=== PATIENT | male | born 1950 | race Caucasian/White ===

== ENCOUNTER 2025-06-08 15:17 | Inpatient (IN) | payer OTHER, MEDICARE ==
[~2025-06-08] VITALS: Ht 182.9 cm; Wt 102.0 kg
[~2025-06-08 15:17] MED LIST: AMLO1TAB22 PO; APIX5TAB PO; CARV12.544 PO; FURO40TA4 PO; HYDR12.55 PO; LOSA-535 PO; POTA-228 PO; PRED1SUS31 RIGHTEYE
--- NOTE | 2025-06-08 15:28 | ECG ---
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
--- NOTE | 2025-06-08 15:45 | ED.PDOC ---
History of Present Illness HPI Comments 75-year-old male BIBSelena with prior medical history of hypertension, CHF complain of possible syncope/weakness. EMS report on getting a call by the family due from the patient possibly having a syncopal episode, but when EMS arrived on scene the patient was sitting on his recliner, A/Ox4, of 48/26. In route the patient was given 800 mg of via IV to the right forearm which brought the blood pressure up to 95/54 in the ER. Patient and family are poor historians. Denies chills, fever, N/V/D, SOB, CP. No other associated symptoms, modifiers, recent injuries or sick contacts present at this time. Chief Complaint: General Weakness Time Seen by MD: 15:45 Reviewed Notes: Nurses Notes, Medications, Allergies Information Source: Patient Mode of Arrival: EMS Severity: Moderate Timing: Minutes Duration: Since onset, Minutes Prehospital treatment: None Past Medical History PAST MEDICAL HISTORY: CHF, HTN Surgical History: Denies all surgeries Family History Family History: Reviewed,noncontributory to illness, Unknown Social History Smoker: Non-Smoker Alcohol: Denies ETOH Use Drugs: Denies Drug Use Lives In: Home Constitutional: reports: weakness; denies: chills, diaphoresis, fatigue, fever, malaise, sweats, others EENTM: denies: blurred vision, double vision, ear bleeding, ear discharge, ear drainage, ear pain, ear ringing, eye pain, eye redness, hearing loss, mouth pain, mouth swelling, nasal discharge, nose bleeding, nose congestion, nose pain, photophobia, tearing, throat pain, throat swelling, voice changes, others Respiratory: denies: cough, hemoptysis, orthopnea, SOB at rest, shortness of breath, SOB with excertion, stridor, wheezing, others Cardiovascular: reports: syncope; denies: chest pain, dizzy spells, diaphoresis, Dyspnea on exertion, edema, irregular heart beat, left arm pain, lightheadedness, palpitations, PND, others Gastrointestinal: denies: abdomen distended, abdominal pain, blood streaked bowels, constipated, diarrhea, dysphagia, difficulty swallowing, hematemesis, melena, nausea, poor appetite, poor fluid intake, rectal bleeding, rectal pain, vomiting, others Genitourinary: denies: burning, dysuria, flank pain, frequency, hematuria, incontinence, penile discharge, penile sore, pain, testicle pain, testicle swelling, urgency, others Neurological: denies: dizziness, fainting, headache, left sided numbness, left sided weakness, numbness, paresthesia, pre-existing deficit, right sided numbness, right sided weakness, seizure, speech problems, tingling, tremors, weakness, others Musculoskeletal: denies: back pain, gout, joint pain, joint swelling, muscle pain, muscle stiffness, neck pain, others Integumetry: denies: bruises, change in color, change in hair/nails, dryness, laceration, lesions, lumps, rash, wounds, others Allergic/Immunocompromised: denies: Difficulty Healing, Frequent Infections, Hives, Itching, others Hematologic/Lymphatic: denies: anemia, blood clots, easy bleeding, easy bruising, swollen glands, others Endocrine: denies: excessive hunger, excessive sweating, excessive thirst, excessive urination, flushing, intolerance to cold, intolerance to heat, unexplained weight gain, unexplained weight loss, others Psychiatric: denies: anxiety, bipolar disorder, depression, hopeless, panic disorder, schizophrenia, sleepless, suicidal, others All Other Systems: Reviewed and Negative Physical Exam General Appearance: Moderate Distress, Normal HEENT: Normal ENT Inspection, Pharynx Normal, TMs Normal Neck: Full Range of Motion, Non-Tender, Normal, Normal Inspection Respiratory: Chest Non-Tender, Lungs Clear, No Accessory Muscle Use, No Respiratory Distress, Normal Breath Sounds Cardiovascular: No Edema, No JVD, No Murmur, No Gallop, Normal Peripheral Pulses, Regular Rate/Rhythm Breast Exam: Deferred Gastrointestinal: No Organomegaly, Non Tender, No Pulsatile Mass, Normal Bowel Sounds, Soft Genitalia: Deferred Pelvic: Deferred Rectal: Deferred Extremities: No calf tenderness, Normal capillary refill, Normal range of motion, Non-tender, No pedal edema Musculoskeletal : Apperance: Normal Neurologic: Disoriented, No Motor Deficits, No Sensory Deficits Cerebellar Function: NOT DONE Reflexes: NOT DONE Skin: Dry, Normal Color, Warm Peripheral Pulses: 3+ Radial (R), 3+ Radial (L) Lymphatic: No Adenopathy Was a procedure done? Was a procedure done?: No EKG EKG : Pulse Rate (adult): 59 [place]: Normal Cardiac Rhythm: Afib Block: None Hypertrophy: None ST: Normal Differential Dx Considerations may include: Metabolic encephalopathy Electrolyte imbalance X-Ray, Labs, Meds, VS Vital Signs Date Time Temp Pulse Resp B/P (MAP) Pulse Ox O2 Delivery O2 Flow Rate FiO2 06/08/25 15:45 59 06/08/25 15:23 59 Lab Test 06/08/25 15:51 Range/Units White Blood Count Pending Red Blood Count Pending Hemoglobin Pending Hematocrit Pending Mean Corpuscular Volume Pending Mean Corpuscular Hemoglobin Pending Mean Corpuscular Hemoglobin Concent Pending Red Cell Distribution Width Pending Platelet Count Pending Mean Platelet Volume Pending Neutrophils (%) (Auto) Pending Lymphocytes (%) (Auto) Pending Monocytes (%) (Auto) Pending Basophils (%) (Auto) Pending Neutrophils # (Auto) Pending Lymphocytes # (Auto) Pending Monocytes # (Auto) Pending Sodium Level 121 L 136-145 mmol/L Potassium Level 1.8 *L 3.5-5.1 mmol/L Chloride Level 71 L 98-107 mmol/L Carbon Dioxide Level > 40 *H 20-31 mmol/L Anion Gap 9.34733 5-15 Blood Urea Nitrogen 17 9-23 mg/dL Creatinine 1.34 H 0.700-1.30 mg/dL Glomerular Filtration Rate Calc 55 >90 mL/min BUN/Creatinine Ratio 12.7 10.0-20.0 Serum Glucose 126 H 74-106 mg/dL Calcium Level 8.2 L 8.7-10.4 mg/dL Total Bilirubin 1.1 H 0.2-1.0 mg/dL Aspartate Amino Transferase (AST) 28 13-40 U/L Alanine Aminotransferase (ALT) 13 7-40 U/L Alkaline Phosphatase 117 H 46-116 U/L Troponin I High Sensitivity 28 </=54 ng/L B-Type Natriuretic Peptide 155.48 0-100 pg/mL Total Protein 6.6 5.7-8.2 g/dL Albumin 3.2 3.2-4.8 g/dL Patient very difficult to get history from. He is slightly disoriented. Vitals stable. EKG does show atrial fibrillation. He is moving his extremities pain No sign of any head trauma. Apparently he does fall frequently. He is bed ridden. Continue to monitor. Time of 1ST Reevaluation: 16:15 Reevaluation 1ST: Unchanged Patient Education/Counseling: Diagnosis, Treatment, Prognosis Family Education/Counseling: No Family Present SEPSIS Sepsis Screen Physician Orders Complete Blood Count (06/08/25 15:40) Chest Portable (06/08/25 15:40) Urinalysis (06/08/25 15:40) Sodium Chloride 0.9% (06/08/25 15:45) Troponin-I Hs (06/08/25 16:40) Troponin-I Hs (06/08/25 18:40) Vital Signs Date Time Temp Pulse Resp B/P (MAP) Pulse Ox O2 Delivery O2 Flow Rate FiO2 06/08/25 15:45 59 06/08/25 15:23 59 Laboratory Tests Test 06/08/25 15:51 White Blood Count Pending Departure 1 Departure Time of Disposition: 16:24 Impression: Primary Impression: Hypokalemia Additional Impressions: Metabolic encephalopathy Failure to thrive Qualified Codes: R62.7 - Adult failure to thrive Disposition: ADMITTED INPATIENT Admit to: Med Surg Condition: Guarded Critical Care Note Critical Care Time?: Yes (90 min-critical care time only) Stability Stability form required: No Heart Score Heart Score: Heart Score Response (Comments) Value History Slightly Suspicious 0 EKG Normal 0 Age >65 2 Risk Factors >3 or Hx ASHD 2 Troponin Normal limit 0 Total 4 I personally scribed for ANETTE PANCHAL MD ([email or web address]) on 06/08/25 at 15:45. Electronically submitted by Basilio Andre ([email or web address]). ANETTE PANCHAL MD Jun 08, 2025 15:45
[2025-06-08 16:21] LABS: Alanine Aminotransferase 13 U/L (7-40); Albumin 3.2 g/dL (3.2-4.8); BUN/Creatinine Ratio 12.7 (10.0-20.0); Bilirubin, Total 1.1 mg/dL (0.2-1.0); Blood Urea Nitrogen 17 mg/dL (9-23); Total Protein 6.6 g/dL (5.7-8.2)
--- NOTE | 2025-06-08 16:21 | DVH ---
CHEST RADIOGRAPH Indication: sob Technique: Single frontal view of the chest was obtained COMPARISON: None FINDINGS: Lines and Tubes: None Lungs: Congestion. Left lower lobe airspace disease. Pleura: No effusion. No pneumothorax. Cardiomediastinal contours: Unremarkable Bones: Unremarkable IMPRESSION: Left lower lobe airspace disease.
[2025-06-08 16:27] LABS: Alkaline Phosphatase 117 U/L (46-116); Anion Gap 9.99999 (5-15); Calcium 8.2 mg/dL (8.7-10.4); Chloride 71 mmol/L (98-107); Glucose 126 mg/dL (74-106); Sodium 121 mmol/L (136-145)
[2025-06-08 16:30] LABS: Carbon Dioxide > 40 mmol/L (20-31); Potassium 1.8 mmol/L (3.5-5.1)
[2025-06-08 16:37] LABS: Hematocrit 33.8 % (41.0-53.0); Hemoglobin 12.3 g/dL (13.5-17.5); Mean Corpuscular Hemoglobin 34.6 pg (28.0-32.0); Mean Corpuscular Volume 94.7 fL (80.0-100.0); Nucleated Red Blood Cells % 0.0 %
[2025-06-08] MEDS: SODIUM CHLORIDE 0.9% 1,000 ML IV ONE (16:40)
[2025-06-08 17:05] LABS: Base Excess 17.7 mmol/L (-2.0-3.0)
[2025-06-08] MEDS: POTASSIUM CHL 20MEQ/100ML 100 ML IV SCH ×2 (18:10→23:46)
[2025-06-08] MEDS ORDERED: MORPHINE SULFATE INJ 2 MG/ml SYRG IV PRN (20:00)
[2025-06-08] MEDS ORDERED: NITROGLYCERIN 0.4 MG SL TAB SL PRN (20:00)
[2025-06-08] MEDS ORDERED: ACETAMINOPHEN 325 MG TAB PO PRN (22:00)
[2025-06-08] MEDS ORDERED: ONDANSETRON HCL 4 MG/2 ML VIAL IV PRN (22:00)
--- NOTE | 2025-06-08 22:06 | DVHHP2 ---
History of Present Illness Reason for Visit: Generalized weakness History of Present Illness 75-year-old male presents for evaluation of generalized weakness. Patient was noted to be progressively weaker at home so EMS was called. Patient was found lethargic with a blood pressure in the 40s. Patient is currently alert and or iented x4 blood pressure is in the mid 90s. Denies chest pain or shortness for breath. No cough or fever. No other acute symptoms. Past Medical History Hypertension and CHF Past Surgical History Denies Family History Noncontributory Smoke: No ALCOHOL: none Drugs: None Lives: with Family Review of Systems Review of Systems Review of systems are currently negative otherwise addressed in HPI. Allergies: Coded Allergies: NO KNOWN ALLERGIES (Unverified , 06/08/25) Medications Current Medications Medications Dose Ordered Sig/Cari Route Start Time Stop Time Status Last Admin Dose Admin Potassium Chloride 100 ml @ 50 mls/hr Q2H IV 06/08/25 16:45 06/09/25 00:44 06/08/25 21:14 50 MLS/HR Nitroglycerin 0.4 mg Q5MINP PRN SL 06/08/25 20:00 Morphine Sulfate 2 mg Q30M PRN IV 06/08/25 20:00 Ondansetron HCl 4 mg Q4HP PRN IV 06/08/25 22:00 UNV Acetaminophen 650 mg Q6HP PRN PO 06/08/25 22:00 UNV Exam Vital Signs Vital Signs Date Time Temp Pulse Resp B/P (MAP) Pulse Ox O2 Delivery O2 Flow Rate FiO2 06/08/25 21:15 55 14 74/41 (52) 98 06/08/25 20:00 98.6 98.6 06/08/25 17:15 Room Air* 0 21 Exam Gen: 75-year-old male in mild distress Skin: Warm, dry, normal color and texture, no rash. HEENT: Normocephalic atraumatic, mucous membranes moist and pink. Neck: Cervical and supraclavicular nodes normal without enlargement, trachea is midline, thyroid gland is normal without masses. Pulmonary: Clear to auscultation and percussion bilaterally. Cardiac: Regular rate and rhythm. No murmur Abdomen: Soft, nontender, nondistended, bowel sounds present all 4 quadrants, no guarding, no rigidity, no organomegaly. Extremities: No cyanosis, clubbing, no edema Neuro: Cranial nerves II through XII grossly intact, normal affect and speech, no focal motor deficits. Labs/Xrays ORDERING PHYSICIAN: ANETTE PANCHAL MD PROCEDURE(s): CXRP - CHEST PORTABLE REASON: sob ORDER NUMBER(s): [id number], ACCESSION NUMBER(s): [id number] CHEST RADIOGRAPH Indication: sob Technique: Single frontal view of the chest was obtained COMPARISON: None FINDINGS: Lines and Tubes: None Lungs: Congestion. Left lower lobe airspace disease. Pleura: No effusion. No pneumothorax. Cardiomediastinal contours: Unremarkable Bones: Unremarkable IMPRESSION: Left lower lobe airspace disease. Labs Test 06/08/25 19:44 06/08/25 16:56 06/08/25 15:51 Range/Units Troponin I High Sensitivity 30 </=54 ng/L Blood Gas Specimen Type Arterial Blood Gas Sample Site Right radial Blood Gas Patient Temperature 37.0 Arterial Blood Date Drawn [id number] Arterial Blood pH 7.657 *H 7.350-7.450 Arterial Blood Partial Pressure CO2 36.3 35.0-48.0 mmHg Arterial Blood Partial Pressure O2 73.4 L 83.0-108.0 mmHg Arterial Blood HCO3 39.7 H 21.0-28.0 mmol/L Arterial Blood Oxygen Saturation 95.8 94.0-98.0 % Arterial Blood Base Excess 17.7 H -2.0-3.0 mmol/L Arterial Blood Oxyhemoglobin 94.6 94.0-98.0 % Arterial Blood Carboxyhemoglobin 0.9 0.5-1.5 % Arterial Blood Methemoglobin 0.4 0.0-1.5 % Mateus Test Yes Blood Gas Total Hemoglobin 12.30 L 13.5-17.5 g/dL Blood Gas Modality Room air FiO2 % 21.0 Blood Gas Critical Value Read Back Yes Blood Gas Notified Whom willis Panchal md Blood Gas Notified Time [id number] Blood Gas Notified By bronson yan rrt White Blood Count 11.0 H 4.4-10.8 10^3/uL Red Blood Count 3.57 L 4.5-5.90 10^6/uL Hemoglobin 12.3 L 13.5-17.5 g/dL Hematocrit 33.8 L 41.0-53.0 % Mean Corpuscular Volume 94.7 80.0-100.0 fL Mean Corpuscular Hemoglobin 34.6 H 28.0-32.0 pg Mean Corpuscular Hemoglobin Concent 36.6 H 32.0-36.0 g/dL Red Cell Distribution Width 13.3 11.8-14.3 % Platelet Count 271 140-450 10^3/uL Mean Platelet Volume 7.9 6.9-10.8 fL Neutrophils (%) (Auto) 82.8 H 37.0-80.0 % Lymphocytes (%) (Auto) 6.6 L 10.0-50.0 % Monocytes (%) (Auto) 9.4 0.0-12.0 % Eosinophils (%) (Auto) 0.1 0.0-7.0 % Basophils (%) (Auto) 1.1 0.0-2.0 % Neutrophils # (Auto) 9.1 H 1.6-8.6 10 ^3/uL Lymphocytes # (Auto) 0.7 0.4-5.4 10 ^3/uL Monocytes # (Auto) 1.0 0-1.3 10 ^3/uL Eosinophils # (Auto) 0 0-0.8 10 ^3/uL Basophils # (Auto) 0.1 0-0.2 10 ^3/uL Nucleated Red Blood Cells 0.0 % Sodium Level 121 L 136-145 mmol/L Potassium Level 1.8 *L 3.5-5.1 mmol/L Chloride Level 71 L 98-107 mmol/L Carbon Dioxide Level > 40 *H 20-31 mmol/L Anion Gap 9.22297 5-15 Blood Urea Nitrogen 17 9-23 mg/dL Creatinine 1.34 H 0.700-1.30 mg/dL Glomerular Filtration Rate Calc 55 >90 mL/min BUN/Creatinine Ratio 12.7 10.0-20.0 Serum Glucose 126 H 74-106 mg/dL Calcium Level 8.2 L 8.7-10.4 mg/dL Total Bilirubin 1.1 H 0.2-1.0 mg/dL Aspartate Amino Transferase (AST) 28 13-40 U/L Alanine Aminotransferase (ALT) 13 7-40 U/L Alkaline Phosphatase 117 H 46-116 U/L B-Type Natriuretic Peptide 155.48 0-100 pg/mL Total Protein 6.6 5.7-8.2 g/dL Albumin 3.2 3.2-4.8 g/dL SEPSIS Sepsis Screen Date sepsis recognized/suspect: Jun 08, 2025 Time Sepsis recognized/suspect: 1516 Recent Procedure: No On Antibiotic Therapy: No Respiratory Rate >20: No Heart Rate >90: No Temp<36 C (96.8 F) or >38.3 C: No SBP <90 or MAP <65 mmHG: No New Acute Mental Status Change: No Is the patient on CPAP, BIPAP,: No Physician Orders Chest Portable (06/08/25 15:40) Urinalysis (06/08/25 15:40) Potassium Chl 20meq/100ml (06/08/25 16:45) Abg W/ Co-Ox (06/08/25 16:51) Admit (06/08/25 19:55) Nitroglycerin Sublingual (Ntrostat Subli (06/08/25 20:00) Morphine Sulfate Injection (06/08/25 20:00) Stat Ekg For Chest Pain (06/08/25 19:55) Notify Md Of Changes From Base (06/08/25 19:55) Design Sales Consultant For 24 Hours (06/08/25 19:55) Emergency Dysrhythmia Protocol (06/08/25 19:55) Rhythm Strips Once Every Shift (06/08/25 19:55) Oxygen By Nasal Cannula (06/08/25 19:55) Basic Metabolic Panel (06/08/25 22:00) Lactic Acid W/ Reflex Order (06/08/25 21:54) Albumin 5% (Albutein) (06/08/25 22:00) Basic Metabolic Panel (06/09/25 04:00) Ondansetron Hcl (Zofran) (06/08/25 22:00) Complete Blood Count (06/09/25 04:00) Cardiac Diet-2gna,Lofat,Lochol (06/09/25 Breakfast) Echo 2d Mode Cardiac Dop (06/08/25 21:54) Condition: Fair (06/08/25 21:54) Acetaminophen Tablet (Tylenol Tablet) (06/08/25 22:00) Bedrest With Bathroom Privileg (06/08/25 21:54) Vital Signs Date Time Temp Pulse Resp B/P (MAP) Pulse Ox O2 Delivery O2 Flow Rate FiO2 06/08/25 21:15 55 14 74/41 (52) 98 06/08/25 20:00 98.6 57 11 91/45 (60) 98 98.6 06/08/25 17:19 69 06/08/25 17:15 Room Air* 0 21 06/08/25 17:05 98.0 60 11 95/51 (66) 100 98.0 06/08/25 15:45 59 06/08/25 15:23 59 06/08/25 15:17 98.1 86 14 93/45 97 98.1 Laboratory Tests Test 06/08/25 15:51 White Blood Count 11.0 10^3/uL (4.4-10.8) H Medications Medications Dose Ordered Sig/Cari Route Start Time Stop Time Status Last Admin Dose Admin Potassium Chloride 100 ml @ 50 mls/hr Q2H IV 06/08/25 16:45 06/09/25 00:44 06/08/25 21:14 50 MLS/HR Sodium Chloride 1,000 ml @ 1,000 mls/hr Q1H ONCE IV 06/08/25 15:45 06/08/25 16:44 DC 06/08/25 16:40 1,000 MLS/HR Assessment/Plan Assessment/Plan Assessment Symptomatic hypotension Questionable pneumonia CHF Plan Admit the patient to telemetry to the hospitalist Hold antihypertensives Blood cultures pending Azithromycin Continue treatment per orders. Plan discussed with: Patient My Orders Orders - ROBERT DELCID AGACNP Procedure Category Date Status Time Admit ADMIT 06/08/25 Transmitted 19:55 Nitroglycerin PHA 06/08/25 In Process Sublingual (Ntrostat 20:00 Morphine Sulfate PHA 06/08/25 In Process Injection 20:00 Stat Ekg For Chest MURIEL 06/08/25 In Process Pain 19:55 Notify Of Changes MURIEL 06/08/25 In Process From Base 19:55 Design Sales Consultant For MURIEL 06/08/25 In Process 24 Hours 19:55 Emergency Dysrhythmia MURIEL 06/08/25 In Process Protocol 19:55 Rhythm Strips Once MURIEL 06/08/25 In Process Every Shift 19:55 Oxygen By Nasal RT 06/08/25 Transmitted Cannula 19:55 Basic Metabolic Panel LAB 06/08/25 Logged 22:00 Lactic Acid W/ Reflex LAB 06/08/25 Logged Order 21:54 Albumin 5% (Albutein) PHA 06/08/25 Logged 22:00 Basic Metabolic Panel LAB 06/09/25 Verified 04:00 Ondansetron Hcl PHA 06/08/25 Logged (Zofran) 22:00 Complete Blood Count LAB 06/09/25 Verified 04:00 Cardiac DIET 06/09/25 Transmitted Diet-2gna,Lofat,Lochol Breakfast Echo 2d Mode Cardiac US 06/08/25 Logged DOP 21:54 Condition: Fair MURIEL 06/08/25 In Process 21:54 Acetaminophen Tablet PHA 06/08/25 Logged (Tylenol Tablet) 22:00 Bedrest With Bathroom MURIEL 06/08/25 In Process Privileg 21:54 Date of Service: Jun 08, 2025 Billing Provider: ROBERT DELCID Common Visit Codes: [id number] INP/OBS CARE (HIGH) ROBERT DELCID Jun 08, 2025 22:06
[2025-06-08 22:23] LABS: Anion Gap 7 (5-15)
[2025-06-08 22:27] LABS: Calcium 7.7 mg/dL (8.7-10.4); Chloride 78 mmol/L (98-107); Sodium 123 mmol/L (136-145)
[2025-06-08 22:28] LABS: BUN/Creatinine Ratio 11.4 (10.0-20.0); Blood Urea Nitrogen 14 mg/dL (9-23)
[2025-06-08 22:29] LABS: Glucose 112 mg/dL (74-106); Potassium 2.1 mmol/L (3.5-5.1)
[2025-06-08 22:30] LABS: Carbon Dioxide 38 mmol/L (20-31)
[2025-06-08] MEDS: ALBUMIN 5% 250 ML IV ONE (22:42)
[2025-06-08] MEDS: AZITHROMYCIN 500MG/ 250ML 250 ML IV ONE (22:43)
[2025-06-08] MEDS: POTASSIUM EFFERVESENT TAB 25 MEQ PO ONE (23:47)
[2025-06-09 02:58] VITALS: PULSE 56; RESP 12; O2SAT 97
[2025-06-09 04:09] LABS: Hematocrit 30.7 % (41.0-53.0); Hemoglobin 11.3 g/dL (13.5-17.5); Mean Corpuscular Hemoglobin 35.1 pg (28.0-32.0); Mean Corpuscular Volume 95.4 fL (80.0-100.0); Nucleated Red Blood Cells % 0.0 %
[2025-06-09 04:15] LABS: Anion Gap 6 (5-15)
[2025-06-09 04:19] LABS: Calcium 7.9 mg/dL (8.7-10.4); Carbon Dioxide 37 mmol/L (20-31); Chloride 84 mmol/L (98-107); Potassium 2.7 mmol/L (3.5-5.1); Sodium 127 mmol/L (136-145)
[2025-06-09 04:20] LABS: Glucose 97 mg/dL (74-106)
[2025-06-09 04:21] LABS: BUN/Creatinine Ratio 12.6 (10.0-20.0); Blood Urea Nitrogen 15 mg/dL (9-23)
[2025-06-09] MEDS: POTASSIUM CHLORIDE 60 MEQ, LIDOCAINE 1% (LOCAL ANESTH.) 6 ML in SODIUM CHL 0.9% 500 ML IV ONE (08:16)
[2025-06-09] MEDS: APIXABAN 5 MG TAB PO SCH (10:47)
--- NOTE | 2025-06-09 12:28 | DVHSR ---
APPROVED REPORT EXAM: Two-dimensional and M-mode echocardiogram with Doppler and color Doppler. Blood Pressure: 105/60 mmHg INDICATION Hypotension RISK FACTORS Height: 70, Weight: 205 DIMENSIONS LVDd (3.8-5.7cm)LA (2D)4.7 (1.9-4.0cm)Aortic Root3.4 (2.0-3.7cm) LVDs (2.5-4.0cm)LA (MM) (1.9-4.0cm)Aortic Cusp Exc1.4 (1.5-2.0cm) EF (%) 52.0 (55-70%)Rt. Atrium4.7 (1.9-4.0cm)Asc. Aorta cm Mitral Valve MitralMitral Stenosis E wave1.17m/sMV Mean GR.mmHg A wavem/sMV Peak GR.55mmHg E/A ratio0.02D MVAcm2 DECEL TimemsPRESS 1/2 Qicg95kc IVRTmsDop MVA3.71cm2 Aortic Valve Aortic ValveAortic Stenosis V11.47m/Arie Mean GR.5mmHg V21.62m/Arie Peak GR.11mmHg LVOT Diameter1.9 (1.8-2.4cm)Doppler AVA2.57cm2 Pulmonic Valve V21.19m/s Tricuspid Valve TR Velocity2.43m/s [id number] Other Information Technically limited study due to body habitus. Conclusion lvef 60% RV enlarged, normal function biatrial enlargement no severe valve abnormalities noted
--- NOTE | 2025-06-09 15:20 | DVHPN2 ---
Subjective Seen and examined at bedside in the ER, spouse also present at bedside. Patient reports to feeling weak. Will get CT Chest, possible PNA. Need UA. Changes from previous H/P or p: No Changes Objective Vitals Vital Signs Date Time Temp Pulse Resp B/P (MAP) Pulse Ox O2 Delivery O2 Flow Rate FiO2 06/09/25 14:00 69 20 94/58 (70) 100 06/09/25 08:00 97.7 97.7 06/09/25 07:12 Nasal Cannula* 2 28 Intake/Output Intake and Output 06/09/25 07:00 Intake Total 1000 ml Balance 1000 ml Intake IV Total 1000 ml Exam Gen: in bed, lethargic Cvs: N S1/S2 Resp: Diminished b/l Abd: Soft, NT Sorter Operator: AAOx 3 Medications Current Medications Medications Dose Ordered Sig/Cari Route Start Time Stop Time Status Last Admin Dose Admin Nitroglycerin 0.4 mg Q5MINP PRN SL 06/08/25 20:00 Morphine Sulfate 2 mg Q30M PRN IV 06/08/25 20:00 Ondansetron HCl 4 mg Q4HP PRN IV 06/08/25 22:00 Acetaminophen 650 mg Q6HP PRN PO 06/08/25 22:00 Apixaban 5 mg BID PO 06/09/25 10:00 06/09/25 10:47 5 MG Azithromycin 250 mg DAILY PO 06/10/25 10:00 UNV Ceftriaxone Sodium 50 ml @ 100 mls/hr DAILY@09 IV 06/10/25 09:00 UNV Laboratory Results Laboratory Tests 06/09/25 03:21 Chemistry Test 06/08/25 15:51 06/08/25 22:01 06/09/25 03:21 Albumin 3.2 g/dL (3.2-4.8) Calcium Level 8.2 mg/dL (8.7-10.4) L 7.7 mg/dL (8.7-10.4) L 7.9 mg/dL (8.7-10.4) L Total Protein 6.6 g/dL (5.7-8.2) Cardiac Markers Test 06/08/25 15:51 B-Type Natriuretic Peptide 155.48 pg/mL (0-100) LFT Test 06/08/25 15:51 Alanine Aminotransferase (ALT) 13 U/L (7-40) Alkaline Phosphatase 117 U/L (46-116) H Aspartate Amino Transferase (AST) 28 U/L (13-40) Total Bilirubin 1.1 mg/dL (0.2-1.0) H Blood Gas Results Test 06/08/25 16:56 Arterial Blood pH 7.657 (7.350-7.450) FiO2 % 21.0 Assessment/Plan Assessment/Plan # Possible Gram Neg PNA - CT Chest - Abx # Metabolic Encephalopathy - Improving # Hyponatremia - Monitor - Not exceed correction # Chronic Diastolic CHF # A-Fibb? - Eliquis # Goals of care discussion >18 mins FULL CODE Plan discussed with: Patient, Spouse My Orders Orders - JASON ARCOS MD Procedure Category Date Status Time Urinalysis LAB 06/09/25 Logged 15:07 Urine Sodium LAB 06/09/25 Logged 15:07 Osmolality Urine LAB 06/09/25 Logged 15:07 Insert Sepulveda Catheter MURIEL 06/09/25 In Process 15:07 Basic Metabolic Panel LAB 06/09/25 Logged 15:07 Magnesium LAB 06/09/25 Logged 15:07 Phosphorus LAB 06/09/25 Logged 15:07 Osmolality, Serum LAB 06/09/25 Logged 15:[address] 06/09/25 Logged 15:07 Azithromycin Tablet PHA 06/10/25 Logged (Zithromax Tablet) 10:00 Ceftriaxone 1gm/50ml PHA 06/10/25 Logged (Rocephin) 09:00 Ceftriaxone 2gm/50ml PHA 06/09/25 Logged (Rocephin 2gm/50ml) 15:15 Thyroid Stimulating LAB 06/09/25 Logged Hormone 15:10 Uric Acid LAB 06/09/25 Logged 15:10 Date of Service: Jun 09, 2025 Billing Provider: JASON ARCOS MD Common Visit Codes: [id number] INP/OBS CARE(HIGH) Secondary Visit Codes: [id number] CARE PLAN 30 MINUTES JASON ARCOS MD Jun 09, 2025 15:20
--- NOTE | 2025-06-09 15:54 | DVH ---
EXAM: CT CHEST WITHOUT CONTRAST INDICATION: PNA TECHNIQUE: Noncontrast axial images of the chest have been obtained along with coronal and sagittal r eformatted images. All CT scans at this facility use dose modulation, iterative reconstruction, and/o r weight based dosing when appropriate to reduce radiation dose to as low as reasonably achievable. COMPARISON: XY CHEST PORTABLE on DOS: 06/08/25 FINDINGS: LOWER NECK: Unremarkable LYMPH NODES/MEDIASTINUM: No abnormal lymph nodes by CT size criteria CARDIOVASCULAR: Normal cardiac size. No pericardial effusion. No aneurysmal dilatation of the great v essels. Coronary artery calcifications. UPPER ABDOMEN: Cholelithiasis. Gallbladder is decompressed mild stool burden. MUSCULOSKELETAL: Prior malunited bilateral rib fractures. Incompletely united left posterior 11th ri b. Callus formation along the right scapula compatible with a prior fracture Multilevel degenerative change of the visualized spine. Coronally oriented fracture with asymmetric vertebral plana of the T1 2 vertebral body, age-indeterminate. If continued clinical concern, consider further evaluation with MRI of the lumbar spine. Consideration for acute left lateral 7th rib fracture CHEST WALL: Mild bilateral gynecomastia. LUNG PARENCHYMA/PLEURAL SPACE: Small bilateral pleural effusions. Favor chronic atelectasis along gregorio ateral lung bases. Azygous fissure with coursing azygous vein minimal diffuse peribronchial thickenin g No consolidation, suspicious focal airspace opacity, or suspicious nodules. IMPRESSION: 1. Small bilateral pleural effusions. 2. No suspicious focal airspace consolidation. Diffuse peribronchial thickening. Underlying bronchit is not excluded 3. Coronally oriented fracture with asymmetric vertebral plana of the T12 vertebral body, age-indeter minate. 4. If continued clinical concern, consider further evaluation with MRI of the lumbar spine. 5. Cholelithiasis.
[2025-06-09 16:04] LABS: Anion Gap 4 (5-15)
[2025-06-09 16:05] LABS: Calcium 8.5 mg/dL (8.7-10.4); Carbon Dioxide 36 mmol/L (20-31); Chloride 86 mmol/L (98-107); Potassium 3.3 mmol/L (3.5-5.1); Sodium 126 mmol/L (136-145)
[2025-06-09 16:09] LABS: BUN/Creatinine Ratio 13.1 (10.0-20.0); Blood Urea Nitrogen 14 mg/dL (9-23)
[2025-06-09 16:12] LABS: Glucose 143 mg/dL (74-106)
[2025-06-09] MEDS: DOXYCYCLINE 100MG/100ML 100 ML IV SCH (16:59)
[2025-06-09 17:12] LABS: Urine Protein, UAD Negative (Negative)
[2025-06-09 19:30] VITALS: PULSE 59; RESP 15; O2SAT 97
[2025-06-09] MEDS: SODIUM PHOSPHATES 24 MEQ in SODIUM CHL 0.9% 100 ML IV ONE (19:58)
[2025-06-09] MEDS: POTASSIUM CHL 20 Meq TABLET PO ONE (19:58)
[2025-06-09 21:56] VITALS: BP 112/69; PULSE 83; RESP 17; TEMP 98; O2SAT 99
[2025-06-09] MEDS ORDERED: AZITHROMYCIN 500MG/ 250ML 250 ML IV SCH (22:00)
[2025-06-10] VITALS (9 sets, daily range): BP systolic 107–119; BP diastolic 58–83; PULSE 61–84; RESP 17–19; TEMP 97.6–98.4; O2SAT 97–100
[2025-06-10 07:11] LABS: Anion Gap 6 (5-15)
[2025-06-10 07:17] LABS: Glucose 94 mg/dL (74-106)
[2025-06-10 07:18] LABS: BUN/Creatinine Ratio 11.8 (10.0-20.0); Blood Urea Nitrogen 12 mg/dL (9-23); Magnesium 2.1 mg/dL (1.6-2.6)
[2025-06-10 07:24] LABS: Calcium 8.4 mg/dL (8.7-10.4); Carbon Dioxide 33 mmol/L (20-31); Chloride 89 mmol/L (98-107); Potassium 3.3 mmol/L (3.5-5.1); Sodium 128 mmol/L (136-145)
[2025-06-10] MEDS ORDERED: AZITHROMYCIN 250 MG TAB PO SCH (10:00)
[2025-06-10] MEDS: SODIUM PHOSPHATES 40 MEQ in D5W 5% 250 ML IV ONE (13:30)
--- NOTE | 2025-06-10 13:33 | DVHPN2 ---
Subjective Seen and examined at bedside, patient is feeling better. Patient wishes to go to SNF for PT. Spouse at bedside. Changes from previous H/P or p: No Changes Objective Vitals Vital Signs Date Time Temp Pulse Resp B/P (MAP) Pulse Ox O2 Delivery O2 Flow Rate FiO2 06/10/25 09:00 97.8 84 18 114/68 (83) 100 97.8 06/10/25 00:16 Nasal Cannula* 2 28 Intake/Output Intake and Output 06/10/25 06:59 Intake Total 392.667 ml Balance 392.667 ml Intake Oral 175 ml IV Total 217.667 ml Exam Gen: in bed, NAD Cvs: N S1/S2 Resp: Diminished b/l Abd: Soft, NT Programming Director: AAOx 3 Medications Current Medications Medications Dose Ordered Sig/Cari Route Start Time Stop Time Status Last Admin Dose Admin Nitroglycerin 0.4 mg Q5MINP PRN SL 06/08/25 20:00 Morphine Sulfate 2 mg Q30M PRN IV 06/08/25 20:00 Ondansetron HCl 4 mg Q4HP PRN IV 06/08/25 22:00 Acetaminophen 650 mg Q6HP PRN PO 06/08/25 22:00 Apixaban 5 mg BID PO 06/09/25 10:00 06/10/25 10:36 5 MG Ceftriaxone Sodium 50 ml @ 100 mls/hr DAILY@09 IV 06/10/25 09:00 06/10/25 10:37 100 MLS/HR Doxycycline Hyclate 100 ml @ 50 mls/hr Q12H IV 06/09/25 16:00 06/10/25 04:13 50 MLS/HR Laboratory Results Laboratory Tests 06/09/25 03:21 06/10/25 05:36 Chemistry Test 06/09/25 15:43 06/10/25 05:36 Calcium Level 8.5 mg/dL (8.7-10.4) L 8.4 mg/dL (8.7-10.4) L Magnesium Level 2.0 mg/dL (1.6-2.6) 2.1 mg/dL (1.6-2.6) Phosphorus Level 1.5 mg/dL (2.4-5.1) L 2.3 mg/dL (2.4-5.1) L HgA1c, TSH Test 06/09/25 15:43 Thyroid Stimulating Hormone (TSH) 1.31 uIU/mL (0.55-4.78) Urinalysis Test 06/09/25 15:39 Urine Color Yellow (Yellow) Urine Clarity Clear (Clear) Urine pH 7.5 (5.0-9.0) Urine Specific [place] 1.009 (1.001-1.035) Urine Protein Negative (Negative) Urine Ketones Negative (Negative) Urine Blood Negative /uL (Negative) Urine Nitrite Negative (Negative) Urine Bilirubin Negative (Negative) Urine Urobilinogen 4 mg/dL (Negative) H Urine Leukocyte Esterase Negative /uL (Negative) Urine RBC <1 /hpf (0 - 3) Urine Microscopic WBC 1 /HPF (0-3) Urine Squamous Epithelial Cells Few /hpf (<5) Urine Bacteria None seen /hpf (None Seen) Urine Osmolality 305 mOsm/kg Urine Sodium 81 mmol/L (40-220) Urine Glucose Normal mg/dL (Normal) Assessment/Plan Assessment/Plan # Possible Bronchopneumonia - CT Chest noted - Abx # Metabolic Encephalopathy - Improving # Hyponatremia - Monitor - Not exceed correction # Chronic Diastolic CHF # A-Fibb? - Eliquis # Goals of care discussion >18 mins FULL CODE Plan discussed with: Patient My Orders Orders - JASON ARCOS MD Procedure Category Date Status Time Chest Without Contrast CT 06/09/25 Resulted 15:07 Ceftriaxone 1gm/50ml PHA 06/10/25 In Process (Rocephin) 09:00 Oob To Chair MURIEL 06/09/25 In Process 15:13 Doxycycline PHA 06/09/25 In Process 100mg/100ml 16:00 * Wound Consult CONS 06/10/25 Transmitted Sodium Phosphates PHA 06/10/25 Logged 13:30 Magnesium Oxide PHA 06/10/25 Logged Tablet (Mag-Ox Tablet) 22:00 Basic Metabolic Panel LAB 06/11/25 Verified 04:00 Magnesium LAB 06/11/25 Verified 04:00 Phosphorus LAB 06/11/25 Verified 04:00 * Instructor Physical CONS 06/10/25 Transmitted Consult Out Of Bed Ambulate MURIEL 06/10/25 Transmitted 13:30 Date of Service: Jun 10, 2025 Billing Provider: JASON ARCOS MD Common Visit Codes: [id number] INP/OBS CARE(HIGH) JASON ARCOS MD Jun 10, 2025 13:33
[2025-06-10] MEDS: LACTULOSE 20Gm/30ML SOLN PO ONE (21:25)
[2025-06-10] MEDS: MAGNESIUM OXIDE 400 MG TAB PO SCH (21:26)
[2025-06-11] VITALS (8 sets, daily range): BP systolic 95–113; BP diastolic 55–72; PULSE 53–66; RESP 16–20; TEMP 97.5–98.6; O2SAT 95–99
[2025-06-11 06:43] LABS: Anion Gap 8 (5-15)
[2025-06-11 06:47] LABS: Calcium 8.5 mg/dL (8.7-10.4); Carbon Dioxide 31 mmol/L (20-31); Chloride 87 mmol/L (98-107); Potassium 2.9 mmol/L (3.5-5.1); Sodium 126 mmol/L (136-145)
[2025-06-11 06:49] LABS: Glucose 83 mg/dL (74-106)
[2025-06-11 06:50] LABS: BUN/Creatinine Ratio 11.9 (10.0-20.0); Blood Urea Nitrogen 12 mg/dL (9-23); Magnesium 1.9 mg/dL (1.6-2.6)
[2025-06-11] MEDS: POTASSIUM CHL 20 Meq TABLET PO ONE ×2 (07:28→11:29)
[2025-06-11] MEDS: DOXYCYCLINE 100 MG TAB/CAP PO ONE (11:29)
[2025-06-11] MEDS: SODIUM CHLORIDE 0.9% 500 ML IV ONE (11:29)
--- NOTE | 2025-06-11 11:42 | DVHINCON2 ---
Date of service: Jun 11, [address] Sanchez Reason for Consultation Hyponatremia, hypokalemia History of Present Illness Patient is 75-year-old male with past medical history significant for hypertension, AFib and congestive heart failure is admitted for syncopal episode and bradycardia. On admission patient found to have elevated BUN and creatinine with multiple electrolyte abnormalities, nephrology is consulted for acute kidney injury Past Medical History PAST MEDICAL HISTORY: CHF, HTN, AFib Past Surgical History Surgical History: Denies all surgeries Allergies: Coded Allergies: NO KNOWN ALLERGIES (Unverified , 06/08/25) Home Meds Reported Medications Carvedilol (Carvedilol) 12.5 Mg Tab, 1 TAB PO BID for 90 Days, #180 06/09/25 Amlodipine Besylate (Amlodipine Besylate) 5 Mg Tab, 1 TAB PO DAILY for 30 Days, #30 06/09/25 Losartan Potassium (Losartan Potassium) 100 Mg Tab, 1 TAB PO DAILY for 30 Days, #30 06/09/25 Prednisolone Acetate (Prednisolone Acetate P-F) 1 % Yoanna, 1 DROP RIGHTEYE QID for 30 Days, #15 06/09/25 Potassium Chloride (Potassium Chloride ER) 10 Meq Tab, 1 TAB PO BID for 30 Days, #60 06/09/25 Hydrochlorothiazide (Hydrochlorothiazide) 12.5 Mg Tab, 1 TAB PO DAILY for 90 Days, #90 06/09/25 Furosemide (Furosemide) 40 Mg Tab, 1 TAB PO DAILY for 90 Days, #90 06/09/25 Apixaban Base (ELIQUIS) 5 Mg Tab, 1 TAB PO BID for 30 Days, #60 06/09/25 Current Medications Current Medications Medications (Trade) Dose Ordered Sig/Cari Route PRN Reason Start Time Stop Time Status Last Admin Magnesium Oxide (Mag-Ox Tablet) 800 mg BID PO 06/10/25 22:00 06/11/25 09:14 Doxycycline Monohydrate (Vibramycin Tablet) 100 mg Q12HR PO 06/11/25 22:00 Potassium Chloride/Sodium Chloride 1,000 ml @ 100 mls/hr Q10H IV 06/11/25 11:30 UNV Family History: Angina G8 FATHER FH: malignant neoplasm of bone G8 MOTHER Review of Systems All 12 item review of systems reviewed with the patient nonsignificant except wh at is mentioned in the history of present illness H&P Exam Vital Signs/I&O Vital Sign Date Time Temp Pulse Resp B/P (MAP) Pulse Ox O2 Delivery O2 Flow Rate FiO2 06/11/25 09:00 98.3 63 20 100/56 (71) 97 98.3 06/10/25 20:00 Nasal Cannula* 2 28 Intake and Output 06/10/25 06/11/25 19:00 07:00 Intake Total 600 ml 500 ml Output Total 1250 ml 1400 ml Balance -650 ml -900 ml Intake Oral 600 ml 400 ml IV Total 100 ml Output Urine Total 1250 ml 1400 ml Physical Exam Obese male lying comfortably in bed O2 nasal cannula Lungs clear to auscultation bilaterally Cardiac exam regular rate and rhythm GI obese nontender Sepulveda catheter Extremities no clubbing cyanosis or edema Neuro nonfocal Labs/Diagnostic Data Labs/Diagnostic Data Laboratory Tests Test 06/11/25 05:11 06/10/25 05:36 06/09/25 15:43 06/09/25 15:39 Range/Units Sodium Level 126 L 128 L 126 L 136-145 mmol/L Potassium Level 2.9 L 3.3 L 3.3 L 3.5-5.1 mmol/L Chloride Level 87 L 89 L 86 L 98-107 mmol/L Carbon Dioxide Level 31 33 H 36 H 20-31 mmol/L Anion Gap 8 6 4 L 5-15 Blood Urea Nitrogen 12 12 14 9-23 mg/dL Creatinine 1.01 1.02 1.07 0.700-1.30 mg/dL Glomerular Filtration Rate Calc 78 77 72 >90 mL/min BUN/Creatinine Ratio 11.9 11.8 13.1 10.0-20.0 Serum Glucose 83 94 143 H 74-106 mg/dL Calcium Level 8.5 L 8.4 L 8.5 L 8.7-10.4 mg/dL Phosphorus Level 4.1 2.3 L 1.5 L 2.4-5.1 mg/dL Magnesium Level 1.9 2.1 2.0 1.6-2.6 mg/dL Serum Osmolality 271 L 278-298 mOsm/kg Uric Acid 4.4 3.7-9.2 mg/dL Thyroid Stimulating Hormone (TSH) 1.31 0.55-4.78 uIU/mL Urine Color Yellow Yellow Urine Clarity Clear Clear Urine pH 7.5 5.0-9.0 Urine Specific [place] 1.009 1.001-1.035 Urine Protein Negative Negative Urine Ketones Negative Negative Urine Blood Negative Negative /uL Urine Nitrite Negative Negative Urine Bilirubin Negative Negative Urine Urobilinogen 4 H Negative mg/dL Urine Leukocyte Esterase Negative Negative /uL Urine RBC <1 0 - 3 /hpf Urine Microscopic WBC 1 0-3 /HPF Urine Squamous Epithelial Cells Few <5 /hpf Urine Bacteria None seen None Seen /hpf Urine Osmolality 305 mOsm/kg Urine Sodium 81 40-220 mmol/L Urine Glucose Normal Normal mg/dL Test 06/09/25 03:21 06/08/25 22:01 06/08/25 19:44 06/08/25 17:37 Range/Units White Blood Count 7.4 # 4.4-10.8 10^3/uL Red Blood Count 3.22 L 4.5-5.90 10^6/uL Hemoglobin 11.3 L 13.5-17.5 g/dL Hematocrit 30.7 L 41.0-53.0 % Mean Corpuscular Volume 95.4 80.0-100.0 fL Mean Corpuscular Hemoglobin 35.1 H 28.0-32.0 pg Mean Corpuscular Hemoglobin Concent 36.8 H 32.0-36.0 g/dL Red Cell Distribution Width 12.9 11.8-14.3 % Platelet Count 212 140-450 10^3/uL Mean Platelet Volume 7.5 6.9-10.8 fL Neutrophils (%) (Auto) 68.8 37.0-80.0 % Lymphocytes (%) (Auto) 19.6 10.0-50.0 % Monocytes (%) (Auto) 10.9 0.0-12.0 % Eosinophils (%) (Auto) 0.5 0.0-7.0 % Basophils (%) (Auto) 0.2 0.0-2.0 % Neutrophils # (Auto) 5.1 1.6-8.6 10 ^3/uL Lymphocytes # (Auto) 1.4 0.4-5.4 10 ^3/uL Monocytes # (Auto) 0.8 0-1.3 10 ^3/uL Eosinophils # (Auto) 0 0-0.8 10 ^3/uL Basophils # (Auto) 0 0-0.2 10 ^3/uL Nucleated Red Blood Cells 0.0 % Sodium Level 127 L 123 L 136-145 mmol/L Potassium Level 2.7 L 2.1 *L 3.5-5.1 mmol/L Chloride Level 84 L 78 L 98-107 mmol/L Carbon Dioxide Level 37 H 38 H 20-31 mmol/L Anion Gap 6 7 5-15 Blood Urea Nitrogen 15 14 9-23 mg/dL Creatinine 1.19 1.23 0.700-1.30 mg/dL Glomerular Filtration Rate Calc 64 61 >90 mL/min BUN/Creatinine Ratio 12.6 11.4 10.0-20.0 Serum Glucose 97 112 H 74-106 mg/dL Calcium Level 7.9 L 7.7 L 8.7-10.4 mg/dL Lactic Acid Level 1.6 0.4-2.0 mmol/L Troponin I High Sensitivity 30 28 </=54 ng/L Test 06/08/25 16:56 06/08/25 15:51 Range/Units Blood Gas Specimen Type Arterial Blood Gas Sample Site Right radial Blood Gas Patient Temperature 37.0 Arterial Blood Date Drawn [id number] Arterial Blood pH 7.657 *H 7.350-7.450 Arterial Blood Partial Pressure CO2 36.3 35.0-48.0 mmHg Arterial Blood Partial Pressure O2 73.4 L 83.0-108.0 mmHg Arterial Blood HCO3 39.7 H 21.0-28.0 mmol/L Arterial Blood Oxygen Saturation 95.8 94.0-98.0 % Arterial Blood Base Excess 17.7 H -2.0-3.0 mmol/L Arterial Blood Oxyhemoglobin 94.6 94.0-98.0 % Arterial Blood Carboxyhemoglobin 0.9 0.5-1.5 % Arterial Blood Methemoglobin 0.4 0.0-1.5 % Mateus Test Yes Blood Gas Total Hemoglobin 12.30 L 13.5-17.5 g/dL Blood Gas Modality Room air FiO2 % 21.0 Blood Gas Critical Value Read Back Yes Blood Gas Notified Whom willis Winkler md Blood Gas Notified Time [id number] Blood Gas Notified By bronson yan rrt White Blood Count 11.0 H 4.4-10.8 10^3/uL Red Blood Count 3.57 L 4.5-5.90 10^6/uL Hemoglobin 12.3 L 13.5-17.5 g/dL Hematocrit 33.8 L 41.0-53.0 % Mean Corpuscular Volume 94.7 80.0-100.0 fL Mean Corpuscular Hemoglobin 34.6 H 28.0-32.0 pg Mean Corpuscular Hemoglobin Concent 36.6 H 32.0-36.0 g/dL Red Cell Distribution Width 13.3 11.8-14.3 % Platelet Count 271 140-450 10^3/uL Mean Platelet Volume 7.9 6.9-10.8 fL Neutrophils (%) (Auto) 82.8 H 37.0-80.0 % Lymphocytes (%) (Auto) 6.6 L 10.0-50.0 % Monocytes (%) (Auto) 9.4 0.0-12.0 % Eosinophils (%) (Auto) 0.1 0.0-7.0 % Basophils (%) (Auto) 1.1 0.0-2.0 % Neutrophils # (Auto) 9.1 H 1.6-8.6 10 ^3/uL Lymphocytes # (Auto) 0.7 0.4-5.4 10 ^3/uL Monocytes # (Auto) 1.0 0-1.3 10 ^3/uL Eosinophils # (Auto) 0 0-0.8 10 ^3/uL Basophils # (Auto) 0.1 0-0.2 10 ^3/uL Nucleated Red Blood Cells 0.0 % Sodium Level 121 L 136-145 mmol/L Potassium Level 1.8 *L 3.5-5.1 mmol/L Chloride Level 71 L 98-107 mmol/L Carbon Dioxide Level > 40 *H 20-31 mmol/L Anion Gap 9.11894 5-15 Blood Urea Nitrogen 17 9-23 mg/dL Creatinine 1.34 H 0.700-1.30 mg/dL Glomerular Filtration Rate Calc 55 >90 mL/min BUN/Creatinine Ratio 12.7 10.0-20.0 Serum Glucose 126 H 74-106 mg/dL Calcium Level 8.2 L 8.7-10.4 mg/dL Total Bilirubin 1.1 H 0.2-1.0 mg/dL Aspartate Amino Transferase (AST) 28 13-40 U/L Alanine Aminotransferase (ALT) 13 7-40 U/L Alkaline Phosphatase 117 H 46-116 U/L Troponin I High Sensitivity 28 </=54 ng/L B-Type Natriuretic Peptide 155.48 0-100 pg/mL Total Protein 6.6 5.7-8.2 g/dL Albumin 3.2 3.2-4.8 g/dL Assessment Acute kidney injury secondary to hemodynamic mediated Dehydration likely due to aggressive diuresis Chronic diastolic Congestive heart failure Syncope Hypokalemia Hypophosphatemia Hypomagnesemia Metabolic alkalosis due to excessive diuresis Recommendations Closely monitor fluid and electrolytes Avoid nephrotoxic medications Strict I&Os Check urine electrolytes and protein excretion Check kidney ultrasound Hold diuresis KCL replacement Potassium phosphate IV piggyback Magnesium sulfate IV piggyback I agree with gentle IV fluid hydration Cardiology consult We will continue to follow Patient seen and examined by myself. I discussed my plan of care with the patient, his and the primary nurse at the bedside I would like to thank Dr. Sanchez for the consult, will follow Plan discussed with: Patient, Spouse MÓNICA MORRELL MD Jun 11, 2025 11:42
--- NOTE | 2025-06-11 13:16 | DVHPN2 ---
Subjective Seen and examined at bedside, sodium dropped. Need Nephro consult Changes from previous H/P or p: No Changes Objective Vitals Vital Signs Date Time Temp Pulse Resp B/P (MAP) Pulse Ox O2 Delivery O2 Flow Rate FiO2 06/11/25 09:00 98.3 63 20 100/56 (71) 97 98.3 06/10/25 20:00 Nasal Cannula* 2 28 Intake/Output Intake and Output 06/11/25 06:59 Intake Total 1100 ml Output Total 2650 ml Balance -1550 ml Intake Oral 1000 ml IV Total 100 ml Output Urine Total 2650 ml Exam Gen: in bed, NAD Cvs: N S1/S2 Resp: Diminished b/l Abd: Soft, NT Analytical Manager: AAOx 3 Medications Current Medications Medications Dose Ordered Sig/Cari Route Start Time Stop Time Status Last Admin Dose Admin Nitroglycerin 0.4 mg Q5MINP PRN SL 06/08/25 20:00 Morphine Sulfate 2 mg Q30M PRN IV 06/08/25 20:00 Ondansetron HCl 4 mg Q4HP PRN IV 06/08/25 22:00 Acetaminophen 650 mg Q6HP PRN PO 06/08/25 22:00 Apixaban 5 mg BID PO 06/09/25 10:00 06/11/25 09:14 5 MG Ceftriaxone Sodium 50 ml @ 100 mls/hr DAILY@09 IV 06/10/25 09:00 06/11/25 09:14 100 MLS/HR Magnesium Oxide 800 mg BID PO 06/10/25 22:00 06/11/25 09:14 800 MG Doxycycline Monohydrate 100 mg Q12HR PO 06/11/25 22:00 Potassium Chloride/Sodium Chloride 1,000 ml @ 100 mls/hr Q10H IV 06/11/25 11:30 Laboratory Results Laboratory Tests 06/09/25 03:21 06/11/25 05:11 Chemistry Test 06/11/25 05:11 Calcium Level 8.5 mg/dL (8.7-10.4) L Magnesium Level 1.9 mg/dL (1.6-2.6) Phosphorus Level 4.1 mg/dL (2.4-5.1) Urinalysis Test 06/09/25 15:39 Urine Color Yellow (Yellow) Urine Clarity Clear (Clear) Urine pH 7.5 (5.0-9.0) Urine Specific [place] 1.009 (1.001-1.035) Urine Protein Negative (Negative) Urine Ketones Negative (Negative) Urine Blood Negative /uL (Negative) Urine Nitrite Negative (Negative) Urine Bilirubin Negative (Negative) Urine Urobilinogen 4 mg/dL (Negative) H Urine Leukocyte Esterase Negative /uL (Negative) Urine RBC <1 /hpf (0 - 3) Urine Microscopic WBC 1 /HPF (0-3) Urine Squamous Epithelial Cells Few /hpf (<5) Urine Bacteria None seen /hpf (None Seen) Urine Osmolality 305 mOsm/kg Urine Sodium 81 mmol/L (40-220) Urine Glucose Normal mg/dL (Normal) Assessment/Plan Assessment/Plan # Possible Bronchopneumonia - CT Chest noted - Abx # Metabolic Encephalopathy - Improving # Hyponatremia - Monitor - Not exceed correction # Vitamin D Def- Supplement # Chronic Diastolic CHF # A-Fibb? - Eliquis # Goals of care discussion >18 mins FULL CODE Plan discussed with: Patient, Spouse My Orders Orders - JASON ARCOS MD Procedure Category Date Status Time Magnesium Oxide PHA 06/10/25 In Process Tablet (Mag-Ox Tablet) 22:00 * Date Pitter CONS 06/10/25 Transmitted Consult Out Of Bed Ambulate MURIEL 06/10/25 In Process 13:30 Pt Request For Service PT 06/10/25 Logged 13:33 Doxycycline Tablet PHA 06/11/25 In Process (Vibramycin Tablet) 22:00 Basic Metabolic Panel LAB 06/12/25 Verified 04:00 Magnesium LAB 06/12/25 Verified 04:00 B-Type Natriuretic LAB 06/12/25 Verified Peptide 04:00 *Dr. [facility] CONS 06/11/25 Transmitted -[place] 10:18 Parathyroid Hormone LAB 06/11/25 In Process Intact 11:26 Date of Service: Jun 11, 2025 Billing Provider: JASON ARCOS MD Common Visit Codes: [id number] INP/OBS CARE(MOD) JASON ARCOS MD Jun 11, 2025 13:15
[2025-06-11] MEDS: SOD CHL 0.9%/ KCL 40MEQ 1,000 ML IV SCH (14:00)
[2025-06-11 14:16] LABS: Urine Protein, UAD Negative (Negative)
[2025-06-11 14:22] LABS: Protein, Urine 17.3 mg/dL (1-14)
[2025-06-11] MEDS: ERGOCALCIFEROL 50,000 UNIT(1.25MG) CAP PO SCH (16:41)
[2025-06-11] MEDS: DOXYCYCLINE 100 MG TAB/CAP PO SCH (22:12)
[2025-06-12 01:00] VITALS: BP 95/55; PULSE 57; RESP 16; TEMP 97.6; O2SAT 100
[2025-06-12 05:00] VITALS: BP 112/40; PULSE 55; RESP 16; TEMP 97.7; O2SAT 96
[2025-06-12 06:58] LABS: Potassium 4.2 mmol/L (3.5-5.1)
[2025-06-12 06:59] LABS: Anion Gap 5 (5-15)
[2025-06-12 07:04] LABS: Glucose 100 mg/dL (74-106)
[2025-06-12 07:05] LABS: BUN/Creatinine Ratio 15.2 (10.0-20.0); Blood Urea Nitrogen 15 mg/dL (9-23); Magnesium 1.8 mg/dL (1.6-2.6)
[2025-06-12 07:18] LABS: Calcium 8.6 mg/dL (8.7-10.4); Carbon Dioxide 32 mmol/L (20-31); Chloride 93 mmol/L (98-107); Sodium 130 mmol/L (136-145)
[2025-06-12 08:00] VITALS: PULSE 59; PULSE 62; RESP 18; O2SAT 95
[2025-06-12 09:00] VITALS: BP 105/63; PULSE 63; RESP 18; TEMP 97.5; O2SAT 93
[2025-06-12] MEDS ORDERED: ERGO1CAP23 PO (10:24)
[2025-06-12] MEDS ORDERED: DOX100T PO (10:27)
[2025-06-12] MEDS ORDERED: ALBUAER3 IN (10:27)
--- NOTE | 2025-06-12 10:33 | DVHDS2 ---
Discharge Summary Date of Admission Jun 08, 2025 at 19:55 Date of Discharge: Jun 12, 2025 Admitting Diagnosis Metabolic Encephalopathy Labs/Diagnostic Data: Laboratory Results Test 06/12/25 06:15 06/11/25 13:52 06/11/25 13:47 06/11/25 05:11 Sodium Level 130 mmol/L (136-145) Potassium Level 4.2 mmol/L (3.5-5.1) Chloride Level 93 mmol/L (98-107) Carbon Dioxide Level 32 mmol/L (20-31) Anion Gap 5 (5-15) Blood Urea Nitrogen 15 mg/dL (9-23) Creatinine 0.99 mg/dL (0.700-1.30) Glomerular Filtration Rate Calc 79 mL/min (>90) BUN/Creatinine Ratio 15.2 (10.0-20.0) Serum Glucose 100 mg/dL (74-106) Calcium Level 8.6 mg/dL (8.7-10.4) Magnesium Level 1.8 mg/dL (1.6-2.6) B-Type Natriuretic Peptide 282.00 pg/mL (0-100) Phosphorus Level 3.3 mg/dL (2.4-5.1) Urine Color Yellow (Yellow) Urine Clarity Clear (Clear) Urine pH 5.5 (5.0-9.0) Urine Specific [place] 1.015 (1.001-1.035) Urine Protein Negative (Negative) Urine Ketones Negative (Negative) Urine Blood 1+ /uL (Negative) Urine Nitrite Negative (Negative) Urine Bilirubin Negative (Negative) Urine Urobilinogen 2 mg/dL (Negative) Urine Leukocyte Esterase Negative /uL (Negative) Urine RBC 13 /hpf (0 - 3) Urine Microscopic WBC 6 /HPF (0-3) Urine Squamous Epithelial Cells Few /hpf (<5) Urine Bacteria None seen /hpf (None Seen) Urine Osmolality 383 mOsm/kg Urine Creatinine 78.05 mg/dL (30.0-125.0) Urine Protein/Creatinine Ratio 0.22 Urine Sodium < 10 mmol/L (40-220) Urine Glucose Normal mg/dL (Normal) Urine Total Protein 17.3 mg/dL (1-14) Serum Osmolality 261 mOsm/kg (278-298) Vitamin D 25-Hydroxy 12.1 ng/mL (30.0-100) Parathyroid Hormone (Intact) 53.9 pg/mL (18.4-80.1) Test 06/09/25 15:43 06/09/25 03:21 06/08/25 22:01 06/08/25 19:44 Uric Acid 4.4 mg/dL (3.7-9.2) Thyroid Stimulating Hormone (TSH) 1.31 uIU/mL (0.55-4.78) White Blood Count 7.4 10^3/uL (4.4-10.8) Red Blood Count 3.22 10^6/uL (4.5-5.90) Hemoglobin 11.3 g/dL (13.5-17.5) Hematocrit 30.7 % (41.0-53.0) Mean Corpuscular Volume 95.4 fL (80.0-100.0) Mean Corpuscular Hemoglobin 35.1 pg (28.0-32.0) Mean Corpuscular Hemoglobin Concent 36.8 g/dL (32.0-36.0) Red Cell Distribution Width 12.9 % (11.8-14.3) Platelet Count 212 10^3/uL (140-450) Mean Platelet Volume 7.5 fL (6.9-10.8) Neutrophils (%) (Auto) 68.8 % (37.0-80.0) Lymphocytes (%) (Auto) 19.6 % (10.0-50.0) Monocytes (%) (Auto) 10.9 % (0.0-12.0) Eosinophils (%) (Auto) 0.5 % (0.0-7.0) Basophils (%) (Auto) 0.2 % (0.0-2.0) Neutrophils # (Auto) 5.1 10 ^3/uL (1.6-8.6) Lymphocytes # (Auto) 1.4 10 ^3/uL (0.4-5.4) Monocytes # (Auto) 0.8 10 ^3/uL (0-1.3) Eosinophils # (Auto) 0 10 ^3/uL (0-0.8) Basophils # (Auto) 0 10 ^3/uL (0-0.2) Nucleated Red Blood Cells 0.0 % Lactic Acid Level 1.6 mmol/L (0.4-2.0) Troponin I High Sensitivity 30 ng/L (</=54) Test 06/08/25 16:56 06/08/25 15:51 Blood Gas Specimen Type Arterial Blood Gas Sample Site Right radial Blood Gas Patient Temperature 37.0 Arterial Blood Date Drawn [id number] Arterial Blood pH 7.657 (7.350-7.450) Arterial Blood Partial Pressure CO2 36.3 mmHg (35.0-48.0) Arterial Blood Partial Pressure O2 73.4 mmHg (83.0-108.0) Arterial Blood HCO3 39.7 mmol/L (21.0-28.0) Arterial Blood Oxygen Saturation 95.8 % (94.0-98.0) Arterial Blood Base Excess 17.7 mmol/L (-2.0-3.0) Arterial Blood Oxyhemoglobin 94.6 % (94.0-98.0) Arterial Blood Carboxyhemoglobin 0.9 % (0.5-1.5) Arterial Blood Methemoglobin 0.4 % (0.0-1.5) Mateus Test Yes Blood Gas Total Hemoglobin 12.30 g/dL (13.5-17.5) Blood Gas Modality Room air FiO2 % 21.0 Blood Gas Critical Value Read Back Yes Blood Gas Notified Whom willis Winkler md Blood Gas Notified Time [id number] Blood Gas Notified By bronson yan rrt Total Bilirubin 1.1 mg/dL (0.2-1.0) Aspartate Amino Transferase (AST) 28 U/L (13-40) Alanine Aminotransferase (ALT) 13 U/L (7-40) Alkaline Phosphatase 117 U/L (46-116) Total Protein 6.6 g/dL (5.7-8.2) Albumin 3.2 g/dL (3.2-4.8) Other Laboratory Tests 06/12/25 06:15 06/09/25 03:21 Brief Hx & Hospital Course: 75-year-old male presents for evaluation of generalized weakness and confusion. Patient was noted to be progressively weaker at home so EMS was called. Patient was found lethargic with a blood pressure in the 40s. Patient is currently alert and oriented x4 blood pressure is in the mid 90s. Patient admitted for hyponatremia likely due to HCTZ and Lasix use. Patients sodium has improved. Patient likely has bronchopneumonia will be discharged with Doxycycline. We will discharge the patient Doxycycline. Discontinue HCTZ at home. See PCP and have BMP done in 2-3 days. Operations or Procedures APPROVED REPORT EXAM: Two-dimensional and M-mode echocardiogram with Doppler and color Doppler. Blood Pressure: 105/60 mmHg INDICATION Hypotension RISK FACTORS Height: 70, Weight: 205 DIMENSIONS LVDd (3.8-5.7cm) LA (2D) 4.7 (1.9-4.0cm) Aortic Root 3.4 (2.0- 3.7cm) LVDs (2.5-4.0cm) LA (MM) (1.9-4.0cm) Aortic Cusp Exc 1.4 (1.5- 2.0cm) EF (%) 52.0 (55-70%) Rt. Atrium 4.7 (1.9-4.0cm) Asc. Aorta cm Mitral Valve Mitral Mitral Stenosis E wave 1.17m/s MV Mean GR. mmHg A wave m/s MV Peak GR. 55mmHg E/A ratio 0.0 2D MVA cm2 DECEL Time ms PRESS 1/2 Time 59ms IVRT ms Dop MVA 3.71cm2 Aortic Valve Aortic Valve Aortic Stenosis V1 1.47m/s AO Mean GR. 5mmHg V2 1.62m/s AO Peak GR. 11mmHg LVOT Diameter 1.9 (1.8-2.4cm) Doppler JOSETTE 2.57cm2 Pulmonic Valve V2 1.19m/s Tricuspid Valve TR Velocity 2.43m/s RVSP 31mmHg Other Information Technically limited study due to body habitus. Conclusion lvef 60% RV enlarged, normal function biatrial enlargement no severe valve abnormalities noted Condition at Discharge: Poor Final Diagnosis/Problems List # Possible Bronchopneumonia - Abx # Metabolic Encephalopathy - Improving # Hyponatremia - DC HCTZ # Vitamin D Def- Supplement # Chronic Diastolic CHF # A-Fibb - Eliquis Discharge Disposition: Home Discharge Instruct/Medications Diet: Cardiac 2g Na,low cholest (2 gm sodium, low cholesterol) Activity: Light activity Follow Up/Referral: PCP in 1 week Medications: see med rec Scheduled Amlodipine Besylate (Amlodipine Besylate), 1 TAB PO DAILY, (Reported) Apixaban Base (Eliquis), 1 TAB PO BID, (Reported) Carvedilol (Carvedilol), 1 TAB PO BID, (Reported) Doxycycline Monohydrate (Doxycycline Monohydrate), 100 MG PO Q12HR Ergocalciferol (Vitamin D 88333 Unit), 50,000 UNIT PO Q7D Furosemide (Furosemide), 1 TAB PO DAILY, (Reported) Hydrochlorothiazide (Hydrochlorothiazide), 1 TAB PO DAILY, (Reported) Losartan Potassium (Losartan Potassium), 1 TAB PO DAILY, (Reported) Potassium Chloride (Potassium Chloride ER), 1 TAB PO BID, (Reported) Prednisolone Acetate (Prednisolone Acetate P-F), 1 DROP RIGHTEYE QID, (Reported) Scheduled PRN Albuterol Sulfate (Ventolin Mdi), 90 MCG IN Q6HP PRN Discharge Statement: "Patient was advised to return to the ER or call 911 if any headaches, dizziness, shortness of breath, chest pain, abdominal pain, bleeding, fevers, or worsening of medical condition. Patient was counseled about treatment plan, medications, possible side effects, patientverbalized understanding. All questions were answered to the best of my ability. This discharge took greater then 30 minutes in planning, reviewing documentation, counseling the patient, and discussing with other team members." ASSESSMENT ASSESSMENT Assessment Date of Service: Jun 12, 2025 Billing Provider: JASON ARCOS MD Common Visit Codes: [id number]/[id number] DISCH DAY >30min JASON ARCOS MD Jun 12, 2025 10:33
[2025-06-12 13:00] VITALS: BP 113/67; PULSE 57; RESP 20; TEMP 97.7; O2SAT 98
[2025-06-12 14:13] LABS: Base Excess 2.7 mmol/L (-2.0-3.0)
--- NOTE | 2025-06-12 14:25 | DVHPN2 ---
Progress Note Date Seen: Jun 12, 2025 Medical Necessity Reason Pt with a Central, PICC or Fol: No Subjective Patient reports: Feels better Other Systems: Patient seen and examined by myself today in follow-up Objective vital signs Vital Sign Date Time Temp Pulse Resp B/P (MAP) Pulse Ox O2 Delivery O2 Flow Rate FiO2 06/12/25 13:00 97.7 57 20 113/67 (82) 98 97.7 06/12/25 08:00 Nasal Cannula* 2 28 Total Intake and Output 06/11/25 06/11/25 06/12/25 15:00 23:00 07:00 Intake Total 550 ml 2050 ml 480 ml Output Total 800 ml 750 ml Balance 550 ml 1250 ml -270 ml medications Current Medications Medications Dose Ordered Sig/Cari Route Start Time Stop Time Status Last Admin Dose Admin Nitroglycerin 0.4 mg Q5MINP PRN SL 06/08/25 20:00 Morphine Sulfate 2 mg Q30M PRN IV 06/08/25 20:00 Ondansetron HCl 4 mg Q4HP PRN IV 06/08/25 22:00 Acetaminophen 650 mg Q6HP PRN PO 06/08/25 22:00 Apixaban 5 mg BID PO 06/09/25 10:00 06/12/25 09:02 5 MG Ceftriaxone Sodium 50 ml @ 100 mls/hr DAILY@09 IV 06/10/25 09:00 06/12/25 09:02 100 MLS/HR Magnesium Oxide 800 mg BID PO 06/10/25 22:00 06/12/25 09:02 800 MG Doxycycline Monohydrate 100 mg Q12HR PO 06/11/25 22:00 06/12/25 10:19 100 MG Potassium Chloride/Sodium Chloride 1,000 ml @ 100 mls/hr Q10H IV 06/11/25 11:30 06/12/25 05:31 100 MLS/HR Ergocalciferol 50,000 unit Q7D PO 06/11/25 13:15 06/11/25 16:41 50,000 UNIT Examination: LUNGS:Normal, CVS:Normal, MSK:Normal laboratory and microbiology Laboratory Tests 06/12/25 06:15 06/09/25 03:21 Test 06/12/25 06:15 Range/Units Serum Glucose 100 74-106 mg/dL Problem List/Assessment/Plan Problem List/Assessment/Plan Acute kidney injury secondary to hemodynamic mediated, FeNa < 1% Dehydration likely due to aggressive diuresis Chronic diastolic Congestive heart failure Syncope Hypokalemia Hypophosphatemia Hypomagnesemia Metabolic alkalosis due to excessive diuresis Recommendations Kidney function is improving Hyponatremia slowly and appropriately resolving Strict I&Os Hold diuresis KCL replacement Potassium phosphate IV piggyback Magnesium sulfate IV piggyback I agree with gentle IV fluid hydration Cardiology consult We will continue to follow I discussed my plan of care with the patient, his and the primary nurse at the bedside Plan discussed with: Patient MÓNICA MORRELL MD Jun 12, 2025 14:25
[2025-06-12 14:43] VITALS: BP 125/78; PULSE 68; RESP 18; TEMP 36.5; O2SAT 95
== END 2025-06-12 15:20 | disposition home health service (06) | DRG 640 ==
LOC: ER 15:17 → EDBD 15:17 → EDUNIT# 15:17 → OVERFLOW 19:55 → TELE-CENTR 06-09 21:56
PROVIDERS: ADMIT Internal Medicine; ATTEND Internal Medicine
DX: E87.1 Hypo-osmolality and hyponatremia (principal); G93.41 Metabolic encephalopathy; J18.0 Bronchopneumonia, unspecified organism; I50.32 Chronic diastolic (congestive) heart failure; N17.9 Acute kidney failure, unspecified; R62.7 Adult failure to thrive; E87.3 Alkalosis; E86.0 Dehydration; I11.0 Hypertensive heart disease with heart failure; I35.0 Nonrheumatic aortic (valve) stenosis; I05.0 Rheumatic mitral stenosis; I95.9 Hypotension, unspecified; I48.91 Unspecified atrial fibrillation; E87.6 Hypokalemia; T50.2X5A Adverse effect of carbonic-anhydrase inhibitors, benzothiadiazides and other diuretics, initial encounter; E55.9 Vitamin D deficiency, unspecified; Z80.8 Family history of malignant neoplasm of other organs or systems; Y92.89 Other specified places as the place of occurrence of the external cause
CPT/HCPCS: 36415; 36600; 71045; 71250; 80048; 80053; 81001; 82306; 82570; 82805; 83605; 83735; 83880; 83930; 83935; 83970; 84100; 84156; 84300; 84443; 84484; 84550; 85025; 93005; 93306; 96361; 96365; 97110; 97116; 97163; 99291; G0378; J2003; J3480; J7060

== ENCOUNTER 2025-07-17 12:41 | Emergency (ER) | payer OTHER, MEDICARE ==
[~2025-07-17] VITALS: Ht 185.4 cm; Wt 100.0 kg
[~2025-07-17 12:41] MED LIST changes: +ALBUAER3 IN; +DOX100T PO; +ERGO1CAP23 PO; -HYDR12.55 PO
--- NOTE | 2025-07-17 13:25 | ED.PDOC ---
History of Present Illness HPI Comments This is a 75 year old male presenting to the ED with chief complaint of abnormal labs. Patient reports that he had labs drawn on 07/11, seeing his PCP today with his results showing a hemoglobin of 9.9, so they advised him to come to the ED for further evaluation. Patient relays that he has no symptoms at this time. Patient denies any N/V, weakness, chest pain, SOB, headache, dizziness, or any other symptoms. Chief Complaint: Abnormal LAB's Time Seen by MD: 13:23 Reviewed Notes: Nurses Notes, Medications, Allergies Allergies: Coded Allergies: NO KNOWN ALLERGIES (Unverified , 06/08/25) Home Meds Active Scripts Albuterol Sulfate (VENTOLIN MDI) 90 Mcg Ih, 90 MCG IN Q6HP PRN for 30 Days, #90 INH Prov:JASON ARCOS MD 06/12/25 Doxycycline Monohydrate (Doxycycline Monohydrate) 100 Mg Tab, 100 MG PO Q12HR for 5 Days, #10 TAB Prov:JASON ARCOS MD 06/12/25 Ergocalciferol (VITAMIN D 88785 UNIT) 50,000 [place], [address] UNIT PO Q7D for 12 Days, #12 CAP Prov:JASON ARCOS MD 06/12/25 Reported Medications Carvedilol (Carvedilol) 12.5 Mg Tab, 1 TAB PO BID for 90 Days, #180 06/09/25 Amlodipine Besylate (Amlodipine Besylate) 5 Mg Tab, 1 TAB PO DAILY for 30 Days, #30 06/09/25 Losartan Potassium (Losartan Potassium) 100 Mg Tab, 1 TAB PO DAILY for 30 Days, #30 06/09/25 Prednisolone Acetate (Prednisolone Acetate P-F) 1 % Yoanna, 1 DROP RIGHTEYE QID for 30 Days, #15 06/09/25 Potassium Chloride (Potassium Chloride ER) 10 Meq Tab, 1 TAB PO BID for 30 Days, #60 06/09/25 Furosemide (Furosemide) 40 Mg Tab, 1 TAB PO DAILY for 90 Days, #90 06/09/25 Apixaban Base (ELIQUIS) 5 Mg Tab, 1 TAB PO BID for 30 Days, #60 06/09/25 Information Source: Patient Mode of Arrival: Ambulatory Severity: None Timing: Days Duration: Since onset Prehospital treatment: None Medication Refill: For: Other (Abnormal labs) Past Medical History PAST MEDICAL HISTORY: CHF, HTN Surgical History: Denies all surgeries Family History Family History: Reviewed,noncontributory to illness, Unknown Social History Smoker: Non-Smoker Alcohol: Denies ETOH Use Drugs: Denies Drug Use Lives In: Home Constitutional: denies: chills, diaphoresis, fatigue, fever, malaise, sweats, weakness, others EENTM: denies: blurred vision, double vision, ear bleeding, ear discharge, ear drainage, ear pain, ear ringing, eye pain, eye redness, hearing loss, mouth pain, mouth swelling, nasal discharge, nose bleeding, nose congestion, nose pain, photophobia, tearing, throat pain, throat swelling, voice changes, others Respiratory: denies: cough, hemoptysis, orthopnea, SOB at rest, shortness of breath, SOB with excertion, stridor, wheezing, others Cardiovascular: denies: chest pain, dizzy spells, diaphoresis, Dyspnea on exertion, edema, irregular heart beat, left arm pain, lightheadedness, palpitations, PND, syncope, others Gastrointestinal: denies: abdomen distended, abdominal pain, blood streaked bowels, constipated, diarrhea, dysphagia, difficulty swallowing, hematemesis, melena, nausea, poor appetite, poor fluid intake, rectal bleeding, rectal pain, vomiting, others Genitourinary: denies: burning, dysuria, flank pain, frequency, hematuria, in continence, penile discharge, penile sore, pain, testicle pain, testicle swelling, urgency, others Neurological: denies: dizziness, fainting, headache, left sided numbness, left sided weakness, numbness, paresthesia, pre-existing deficit, right sided numbness, right sided weakness, seizure, speech problems, tingling, tremors, weakness, others Musculoskeletal: denies: back pain, gout, joint pain, joint swelling, muscle pain, muscle stiffness, neck pain, others Integumetry: denies: bruises, change in color, change in hair/nails, dryness, laceration, lesions, lumps, rash, wounds, others Allergic/Immunocompromised: denies: Difficulty Healing, Frequent Infections, Hives, Itching, others Hematologic/Lymphatic: denies: anemia, blood clots, easy bleeding, easy bruising, swollen glands, others Endocrine: denies: excessive hunger, excessive sweating, excessive thirst, excessive urination, flushing, intolerance to cold, intolerance to heat, unexplained weight gain, unexplained weight loss, others Psychiatric: denies: anxiety, bipolar disorder, depression, hopeless, panic disorder, schizophrenia, sleepless, suicidal, others All Other Systems: Reviewed and Negative Physical Exam General Appearance: No Apparent Distress HEENT: Normal ENT Inspection, Pharynx Normal, TMs Normal Neck: Full Range of Motion, Non-Tender, Normal, Normal Inspection Respiratory: Chest Non-Tender, Lungs Clear, No Accessory Muscle Use, No Respiratory Distress, Normal Breath Sounds Cardiovascular: No Edema, No JVD, No Murmur, No Gallop, Normal Peripheral Pulses, Regular Rate/Rhythm Breast Exam: Deferred Gastrointestinal: No Organomegaly, Non Tender, No Pulsatile Mass, Normal Bowel Sounds, Soft Genitalia: Deferred Pelvic: Deferred Rectal: Deferred Extremities: No calf tenderness, Normal capillary refill, Normal inspection, Normal range of motion, Non-tender, No pedal edema Musculoskeletal : Apperance: Normal Neurologic: Alert, contact center professional II-XII nml as Tested, No Motor Deficits, Normal Affect, Normal Mood, No Sensory Deficits Cerebellar Function: Normal Reflexes: Normal Skin: Dry, Pallor, Warm Lymphatic: No Adenopathy Was a procedure done? Was a procedure done?: No Differential Dx Considerations may include: Generalized weakness, electrolyte imbalance, dehydration X-Ray, Labs, Meds, VS Vital Signs Date Time Temp Pulse Resp B/P (MAP) Pulse Ox O2 Delivery O2 Flow Rate FiO2 07/17/25 12:43 97.1 60 20 118/65 100 97.1 Lab Test 07/17/25 13:23 Range/Units White Blood Count 8.8 4.4-10.8 10^3/uL Red Blood Count 3.17 L 4.5-5.90 10^6/uL Hemoglobin 10.3 L 13.5-17.5 g/dL Hematocrit 30.6 L 41.0-53.0 % Mean Corpuscular Volume 96.4 80.0-100.0 fL Mean Corpuscular Hemoglobin 32.4 H 28.0-32.0 pg Mean Corpuscular Hemoglobin Concent 33.6 32.0-36.0 g/dL Red Cell Distribution Width 13.6 11.8-14.3 % Platelet Count 365 140-450 10^3/uL Mean Platelet Volume 7.0 6.9-10.8 fL Neutrophils (%) (Auto) 66.4 37.0-80.0 % Lymphocytes (%) (Auto) 21.3 10.0-50.0 % Monocytes (%) (Auto) 7.3 0.0-12.0 % Eosinophils (%) (Auto) 4.4 0.0-7.0 % Basophils (%) (Auto) 0.6 0.0-2.0 % Neutrophils # (Auto) 5.8 1.6-8.6 10 ^3/uL Lymphocytes # (Auto) 1.9 0.4-5.4 10 ^3/uL Monocytes # (Auto) 0.6 0-1.3 10 ^3/uL Eosinophils # (Auto) 0.4 0-0.8 10 ^3/uL Basophils # (Auto) 0 0-0.2 10 ^3/uL Nucleated Red Blood Cells 0.0 % Sodium Level 140 136-145 mmol/L Potassium Level 4.3 3.5-5.1 mmol/L Chloride Level 106 98-107 mmol/L Carbon Dioxide Level 28 20-31 mmol/L Anion Gap 6 5-15 Blood Urea Nitrogen 13 9-23 mg/dL Creatinine 1.10 0.700-1.30 mg/dL Glomerular Filtration Rate Calc 70 >90 mL/min BUN/Creatinine Ratio 11.8 10.0-20.0 Serum Glucose 103 74-106 mg/dL Calcium Level 8.4 L 8.7-10.4 mg/dL The CBC shows anemia with a hemoglobin of 10.3 and hematocrit of 30.6 The platelets are within normal limits The chemistry panel is within normal limits At this time, the patient is being discharged The patient will follow up with the primary care doctor The patient will return to the emergency department's condition worsens. Time of 1ST Reevaluation: 14:49 Reevaluation 1ST: Improved Patient Education/Counseling: Diagnosis, Treatment, Prognosis, Need For Follow Up Family Education/Counseling: No Family Present SEPSIS Sepsis Screen Date sepsis recognized/suspect: Jul 17, 2025 Time Sepsis recognized/suspect: 1245 Recent Procedure: No On Antibiotic Therapy: No Respiratory Rate >20: No Heart Rate >90: No Temp<36 C (96.8 F) or >38.3 C: No SBP <90 or MAP <65 mmHG: No New Acute Mental Status Change: No Is the patient on CPAP, BIPAP,: No Physician Orders Urinalysis (07/17/25 13:15) Vital Signs Date Time Temp Pulse Resp B/P (MAP) Pulse Ox O2 Delivery O2 Flow Rate FiO2 07/17/25 12:43 97.1 60 20 118/65 100 97.1 Laboratory Tests Test 07/17/25 13:23 White Blood Count 8.8 10^3/uL (4.4-10.8) Departure 1 Departure Time of Disposition: 14:47 Impression: Primary Impression: Abnormal laboratory test result Additional Impression: Anemia Qualified Codes: D64.9 - Anemia, unspecified Disposition: 01 HOME / SELF CARE / HOMELESS Condition: Fair Discharged With: Self Critical Care Note Critical Care Time?: No Stability Stability form required: No Heart Score Heart Score: Heart Score Response (Comments) Value History N/A 0 EKG N/A 0 Age N/A 0 Risk Factors N/A 0 Troponin N/A 0 Total 0 I personally scribed for DAVONTE CARBONE MD ([email or web address]) on 07/17/25 at 13:25. Electronically submitted by Jr King ([email or web address]). DAVONTE CARBONE MD Jul 17, 2025 13:25
[2025-07-17 13:33] LABS: Hematocrit 30.6 % (41.0-53.0); Hemoglobin 10.3 g/dL (13.5-17.5); Mean Corpuscular Hemoglobin 32.4 pg (28.0-32.0); Mean Corpuscular Volume 96.4 fL (80.0-100.0); Nucleated Red Blood Cells % 0.0 %
[2025-07-17 13:39] LABS: Chloride 106 mmol/L (98-107); Potassium 4.3 mmol/L (3.5-5.1); Sodium 140 mmol/L (136-145)
[2025-07-17 13:40] LABS: Anion Gap 6 (5-15); Carbon Dioxide 28 mmol/L (20-31)
[2025-07-17 13:41] LABS: Calcium 8.4 mg/dL (8.7-10.4)
[2025-07-17 13:45] LABS: BUN/Creatinine Ratio 11.8 (10.0-20.0); Blood Urea Nitrogen 13 mg/dL (9-23); Glucose 103 mg/dL (74-106)
[2025-07-17 15:05] VITALS: BP 145/71; TEMP 97.5
[2025-07-17 15:09] VITALS: PULSE 72; RESP 17; O2SAT 97
== END 2025-07-17 15:19 | disposition home or self-care (01) ==
LOC: ER 12:41
DX: D64.9 Anemia, unspecified (principal); R79.9 Abnormal finding of blood chemistry, unspecified; I11.0 Hypertensive heart disease with heart failure; I50.9 Heart failure, unspecified; Z79.899 Other long term (current) drug therapy; Z79.01 Long term (current) use of anticoagulants
CPT/HCPCS: 36415; 80048; 85025